=== PATIENT | male | born 1955 | race Caucasian/White ===

== ENCOUNTER 2022-06-26 14:59 | Inpatient (IN) | payer MEDICARE ==
[~2022-06-26] VITALS: Ht 175.3 cm; Wt 81.8 kg
[~2022-06-26 14:59] MED LIST: TAMS0.4C36
[2022-06-26] MEDS ORDERED: SODIUM CHLORIDE 0.9% 1,000 ML IV ONE (15:45)
[2022-06-26 16:36] LABS: Eosinophils # (auto) 0.1 10 ^3/uL (0-0.8); White Blood Cell 4.3 10^3/uL (4.4-10.8)
[2022-06-26 16:39] LABS: Basophils # (auto) 0.1 10 ^3/uL (0-0.2); Basophils % (auto) 1.2 % (0.0-2.0); Eosinophils % (auto) 1.4 % (0.0-7.0); Hematocrit 15.7 % (41.0-53.0); Lymphocytes % (auto) 21.9 % (10.0-50.0); Mean Corpuscular Hemoglobin 17.4 pg (28.0-32.0); Mean Corpuscular Hgb Conc. 27.8 g/dL (32.0-36.0); Mean Corpuscular Volume 62.7 fL (80.0-100.0); Monocytes # (auto) 0.4 10 ^3/uL (0-1.3); Monocytes % (auto) 10.2 % (0.0-12.0); Neutrophils # (auto) 2.8 10 ^3/uL (1.6-8.6); Neutrophils % (auto) 65.3 % (37.0-80.0); Nucleated Red Blood Cells % 0.3 %
[2022-06-26 16:49] LABS: INR 1.05 (0.9-1.15); Partial Thromboplastin Time 20.1 sec (24.6-33.4)
[2022-06-26 16:51] LABS: Alanine Aminotransferase 15 U/L (16-61); Albumin 3.7 g/dL (3.4-5.0); Anion Gap 10 (5-15); Aspartate Aminotransferase < 3 U/L (15-37); Calcium 8.6 mg/dL (8.5-10.1); Carbon Dioxide 22 mmol/L (21-32); Chloride 109 mmol/L (98-107); GFR African American 91 mL/min; GFR Non-African American 75 mL/min; Glucose 110 mg/dL (74-106); Hemoglobin 4.4 g/dL (13.5-17.5); Potassium 3.6 mmol/L (3.5-5.1); Sodium 141 mmol/L (136-145)
[2022-06-26 16:52] LABS: Red Cell Distribution Width 23.8 % (11.8-14.3)
[2022-06-26 17:10] LABS: Alkaline Phosphatase 71 U/L (45-117); BUN/Creatinine Ratio 16.2; Bilirubin, Total 0.4 mg/dL (0.2-1.0); Blood Urea Nitrogen 17 mg/dL (7-18); Total Protein 7.8 g/dL (6.4-8.2)
[2022-06-27] VITALS (12 sets, daily range): BP systolic 121–160; BP diastolic 51–85
[2022-06-27 02:35] LABS: Urine Bacteria MANY /hpf (None Seen); Urine Blood Negative /uL (Negative); Urine Mucus FEW (None Seen); Urine Specific Gravity 1.015 (1.001-1.035); Urine WBC 86 /hpf (0 - 3)
[2022-06-27] MEDS ORDERED: HYDROcodone-ACET 5/325MG TAB PO PRN (09:00)
[2022-06-27] MEDS ORDERED: MORPHINE SULFATE INJ 2 MG/ml SYRG IV PRN (09:00)
[2022-06-27] MEDS ORDERED: NITROGLYCERIN 0.4 MG SL TAB SL PRN (09:00)
[2022-06-27] MEDS ORDERED: ONDANSETRON HCL 4 MG/2 ML VIAL IV PRN (09:00)
[2022-06-27 18:11] LABS: Basophils # (auto) 0 10 ^3/uL (0-0.2); Basophils % (auto) 0.9 % (0.0-2.0); Eosinophils # (auto) 0.1 10 ^3/uL (0-0.8); Eosinophils % (auto) 1.6 % (0.0-7.0); Hematocrit 22.7 % (41.0-53.0); Lymphocytes # (auto) 0.9 10 ^3/uL (0.4-5.4); Lymphocytes % (auto) 23.3 % (10.0-50.0); Mean Corpuscular Hemoglobin 21.2 pg (28.0-32.0); Mean Corpuscular Hgb Conc. 30.1 g/dL (32.0-36.0); Mean Corpuscular Volume 70.6 fL (80.0-100.0); Monocytes # (auto) 0.4 10 ^3/uL (0-1.3); Neutrophils # (auto) 2.6 10 ^3/uL (1.6-8.6); Neutrophils % (auto) 63.2 % (37.0-80.0); Nucleated Red Blood Cells % 1.1 %; Red Blood Cells 3.22 10^6/uL (4.5-5.90); Red Cell Distribution Width 27.7 % (11.8-14.3); White Blood Cell 4.1 10^3/uL (4.4-10.8)
[2022-06-27 18:13] LABS: Hemoglobin 6.8 g/dL (13.5-17.5)
[2022-06-27] MEDS: DOCUSATE SOD 100 MG CAP PO PRN (21:54)
[2022-06-28 01:36] VITALS: BP 124/58
[2022-06-28 05:00] VITALS: BP 111/45
[2022-06-28 05:48] LABS: Basophils # (auto) 0 10 ^3/uL (0-0.2); Basophils % (auto) 1.1 % (0.0-2.0); Eosinophils # (auto) 0.1 10 ^3/uL (0-0.8); Monocytes # (auto) 0.5 10 ^3/uL (0-1.3); Nucleated Red Blood Cells % 0.2 %
[2022-06-28 05:50] LABS: Eosinophils % (auto) 1.8 % (0.0-7.0); Hematocrit 21.9 % (41.0-53.0); Hemoglobin 7.1 g/dL (13.5-17.5); Lymphocytes # (auto) 0.8 10 ^3/uL (0.4-5.4); Lymphocytes % (auto) 18.3 % (10.0-50.0); Mean Corpuscular Hemoglobin 23.3 pg (28.0-32.0); Mean Corpuscular Hgb Conc. 32.6 g/dL (32.0-36.0); Mean Corpuscular Volume 71.4 fL (80.0-100.0); Monocytes % (auto) 11.4 % (0.0-12.0); Neutrophils # (auto) 3.1 10 ^3/uL (1.6-8.6); Neutrophils % (auto) 67.4 % (37.0-80.0); Red Blood Cells 3.07 10^6/uL (4.5-5.90); Red Cell Distribution Width 26.9 % (11.8-14.3); White Blood Cell 4.6 10^3/uL (4.4-10.8)
[2022-06-28 06:13] LABS: BUN/Creatinine Ratio 27.6; Calcium 8.1 mg/dL (8.5-10.1); Potassium 3.9 mmol/L (3.5-5.1)
[2022-06-28 09:00] VITALS: BP 138/85
[2022-06-28] MEDS ORDERED: cefTRIAXone 1GM/50ML D5W 50 ML IV SCH (09:00)
[2022-06-28] MEDS: DOCUSATE SOD 100 MG CAP PO PRN (09:31)
[2022-06-28] MEDS: TAMSULOSIN HYDROCHLORIDE 0.4 MG CAP PO SCH (09:31)
[2022-06-28 12:50] VITALS: BP 138/59
[2022-06-28 17:00] VITALS: BP 142/72
[2022-06-28 17:39] LABS: Eosinophils # (auto) 0 10 ^3/uL (0-0.8); Neutrophils # (auto) 1.5 10 ^3/uL (1.6-8.6); Red Blood Cells 3.32 10^6/uL (4.5-5.90)
[2022-06-28 17:41] LABS: Basophils # (auto) 0.1 10 ^3/uL (0-0.2); Basophils % (auto) 1.7 % (0.0-2.0); Eosinophils % (auto) 1.4 % (0.0-7.0); Hematocrit 23.9 % (41.0-53.0); Hemoglobin 7.5 g/dL (13.5-17.5); Lymphocytes % (auto) 32.8 % (10.0-50.0); Mean Corpuscular Hemoglobin 22.6 pg (28.0-32.0); Mean Corpuscular Hgb Conc. 31.4 g/dL (32.0-36.0); Monocytes # (auto) 0.5 10 ^3/uL (0-1.3); Neutrophils % (auto) 47.1 % (37.0-80.0); Nucleated Red Blood Cells % 0.4 %; White Blood Cell 3.1 10^3/uL (4.4-10.8)
[2022-06-28 18:11] LABS: % Iron Saturation 7.8 % (20-55)
[2022-06-28 21:43] VITALS: BP 120/65
[2022-06-28] MEDS: DOCUSATE SOD 100 MG CAP PO SCH (22:34)
[2022-06-28] MEDS: NITROFURANTOIN 100 mg CAP PO SCH (22:35)
[2022-06-29] VITALS (8 sets, daily range): BP systolic 117–137; BP diastolic 48–70
[2022-06-29 07:16] LABS: Nucleated Red Blood Cells % 0.2 %; White Blood Cell 3.4 10^3/uL (4.4-10.8)
[2022-06-29 07:19] LABS: Basophils # (auto) 0.1 10 ^3/uL (0-0.2); Basophils % (auto) 2.6 % (0.0-2.0); Eosinophils # (auto) 0.1 10 ^3/uL (0-0.8); Eosinophils % (auto) 3.4 % (0.0-7.0); Hematocrit 23.8 % (41.0-53.0); Hemoglobin 7.7 g/dL (13.5-17.5); Lymphocytes % (auto) 29.1 % (10.0-50.0); Mean Corpuscular Hemoglobin 23.4 pg (28.0-32.0); Mean Corpuscular Hgb Conc. 32.3 g/dL (32.0-36.0); Mean Corpuscular Volume 72.4 fL (80.0-100.0); Monocytes # (auto) 0.5 10 ^3/uL (0-1.3); Monocytes % (auto) 15.9 % (0.0-12.0); Neutrophils # (auto) 1.7 10 ^3/uL (1.6-8.6); Red Blood Cells 3.28 10^6/uL (4.5-5.90); Red Cell Distribution Width 26.6 % (11.8-14.3)
[2022-06-29] MEDS: DOCUSATE SOD 100 MG CAP PO SCH ×2 (09:22→21:39)
[2022-06-29] MEDS: TAMSULOSIN HYDROCHLORIDE 0.4 MG CAP PO SCH (09:22)
[2022-06-29] MEDS: NITROFURANTOIN 100 mg CAP PO SCH ×2 (09:23→21:38)
[2022-06-29] MEDS: FERROUS SULFATE 325mg EC TAB PO SCH ×2 (09:23→12:29)
[2022-06-29] MEDS ORDERED: LORazepam 2MG/ML-1ML VIAL IV PRN (10:30)
[2022-06-29] MEDS ORDERED: FLUMAZENIL 0.1 MG/ML INJ 10ML MDV IV ONE (10:37)
[2022-06-29] MEDS ORDERED: EPINEPHrine HCL 1 MG/10 ML SYRG ONE (10:37)
[2022-06-29] MEDS ORDERED: NALOXONE HCL 0.4 MG/ML VIAL ONE (10:37)
[2022-06-29] MEDS ORDERED: SODIUM CHLORIDE LOCK 0 ML ONE (10:37)
[2022-06-29] MEDS ORDERED: LIDOCAINE VISCOUS 2% 15ML UD ONE (10:38)
[2022-06-29] MEDS ORDERED: fentaNYL CITRATE 100 MCG/2 ML VL ONE (10:38)
[2022-06-29] MEDS ORDERED: MIDAZOLAM HCL 5 MG/ML-1ML VIAL ONE (10:38)
[2022-06-29] MEDS ORDERED: diphenhdrAMINE HCL 50 MG/1 ML VL ONE (10:38)
[2022-06-29 11:59] LABS: Free T4 (Free Thyroxine) 1.03 ng/dL (0.89-1.76)
[2022-06-29] MEDS ORDERED: DOCU100C10 PO (13:22)
[2022-06-29] MEDS ORDERED: FER325T PO (13:22)
[2022-06-29] MEDS ORDERED: NITR100C6 PO (13:22)
[2022-06-29 15:10] LABS: Folate (Folic Acid) 15.95 ng/mL (5.38-24)
[2022-06-30 04:57] VITALS: BP 138/61
[2022-06-30] MEDS ORDERED: LIDOCAINE VISCOUS 2% 15ML UD ONE (07:53)
[2022-06-30] MEDS ORDERED: SODIUM CHLORIDE LOCK 10 ML ONE (07:53)
[2022-06-30 08:00] VITALS: BP 133/61
[2022-06-30 08:06] LABS: Immunoglobulin G, Serum 1577 mg/dL (603-1613)
[2022-06-30] MEDS: fentaNYL CITRATE 100 MCG/2 ML VL ONE ×2 (11:01→11:05)
[2022-06-30] MEDS: diphenhdrAMINE HCL 50 MG/1 ML VL ONE ×2 (11:01→11:07)
[2022-06-30] MEDS: MIDAZOLAM HCL 5 MG/ML-1ML VIAL ONE ×2 (11:01→11:05)
[2022-06-30 12:00] VITALS: BP 127/70
[2022-06-30] MEDS: DOCUSATE SOD 100 MG CAP PO SCH (12:56)
[2022-06-30] MEDS: TAMSULOSIN HYDROCHLORIDE 0.4 MG CAP PO SCH (12:56)
[2022-06-30] MEDS: NITROFURANTOIN 100 mg CAP PO SCH (12:56)
[2022-06-30] MEDS ORDERED: PANT40TA2 PO (12:59)
[2022-06-30 13:51] VITALS: BP 127/75
[2022-06-30] MEDS ORDERED: FERROUS SULFATE 325mg EC TAB PO SCH (18:00)
[2022-06-30] MEDS ORDERED: PANTOPRAZOLE 40 MG TAB PO SCH (22:00)
== END 2022-06-30 16:00 | disposition home health service (06) | DRG 812 ==
LOC: EDBD 14:59 → ER 14:59 → TELE 06-27 08:57 → TELE-EAST 06-27 22:26
PROVIDERS: ADMIT Nurse Practitioner Family; ATTEND Internal Medicine
PROC: 30233N1 Transfusion of Nonautologous Red Blood Cells into Peripheral Vein, Percutaneous Approach (ICD-10-PCS; principal; 2022-06-27)
PROC: 0DB68ZX Excision of Stomach, Via Natural or Artificial Opening Endoscopic, Diagnostic (ICD-10-PCS; 2022-06-30)
DX: D50.9 Iron deficiency anemia, unspecified (principal); G45.9 Transient cerebral ischemic attack, unspecified; N39.0 Urinary tract infection, site not specified; I10 Essential (primary) hypertension; K29.70 Gastritis, unspecified, without bleeding; I25.10 Atherosclerotic heart disease of native coronary artery without angina pectoris; E78.5 Hyperlipidemia, unspecified; G62.9 Polyneuropathy, unspecified; K44.9 Diaphragmatic hernia without obstruction or gangrene; Z20.822 Contact with and (suspected) exposure to COVID-19; N40.0 Benign prostatic hyperplasia without lower urinary tract symptoms; I25.2 Old myocardial infarction; Z63.72 Alcoholism and drug addiction in family; Z81.1 Family history of alcohol abuse and dependence; Z87.11 Personal history of peptic ulcer disease; Z88.1 Allergy status to other antibiotic agents; Z88.0 Allergy status to penicillin
CPT/HCPCS: 36415; 36430; 43239; 70450; 70551; 71045; 80048; 80053; 81001; 82270; 82607; 82746; 82784; 83036; 83540; 83550; 84439; 84443; 84484; 85025; 85610; 85730; 86334; 86850; 86900; 86901; 86920; 87426; 93005; 96360; 99291; G0378; J2250